=== PATIENT | female | born 1945 | race Caucasian/White ===

== ENCOUNTER → 2016-05-10 | Outpatient (CLI) | payer MEDICARE, BC ==
[~2016-05-10] MED LIST: AMLO2.5T PO; AMLO5TAB2 PO; ATOR20TA9 PO
[2016-05-10 09:38] LABS: BLOOD UREA NITROGEN 15 mg/dL (7-18)
[2016-05-10 09:42] LABS: ASPARTATE AMINO TRANSFERASE 21 U/L (15-37)
== END | disposition home or self-care (01) ==
LOC: STAR 08:08
PROVIDERS: ATTEND Surgery
DX: Z01.818 Encounter for other preprocedural examination (principal); K80.00 Calculus of gallbladder with acute cholecystitis without obstruction
CPT/HCPCS: 36415; 80053

== ENCOUNTER 2016-05-20 07:58 | Inpatient (IN) | payer MEDICARE, BC ==
[2016-05-10 10:04] VITALS: BP 164/81
[~2016-05-20] VITALS: Ht 161.3 cm; Wt 68.6 kg
[2016-05-20] MEDS ORDERED: LIDOCAINE 1%, 2ML SQ PRN (08:30)
[2016-05-20] MEDS: LACTATED RINGERS 1,000 ML IV SCH ×2 (08:55→14:56)
[2016-05-20] MEDS ORDERED: BUPIVACAINE/PF 0.5% ONE (09:04)
[2016-05-20] MEDS ORDERED: BUPIVACAINE/PF-EPI 0.25% 1:200K ONE (09:04)
[2016-05-20] MEDS ORDERED: FENTANYL PF 100 MCG/2ML ONE ×4 (10:36→12:56)
[2016-05-20] MEDS ORDERED: METOCLOPRAMIDE 5 MG/ML, 2ML ONE (10:43)
[2016-05-20] MEDS ORDERED: CEFAZOLIN 1,000 MG ONE (10:43)
[2016-05-20] MEDS ORDERED: ROCURONIUM 10 MG/ML ONE (10:43)
[2016-05-20] MEDS ORDERED: DEXAMETHASONE 4 MG/ML, 1ML ONE (10:43)
[2016-05-20] MEDS ORDERED: ONDANSETRON 2MG/ML, 2ML ONE ×2 (10:43→13:18)
[2016-05-20] MEDS ORDERED: PROPOFOL 10 MG/ML, 20ML ONE (10:43)
[2016-05-20] MEDS ORDERED: LIDOCAINE 2% 100MG/5ML SYRINGE ONE (10:43)
[2016-05-20] MEDS ORDERED: hydrALAzine 20 MG/ML, 1ML IV PRN (11:30)
[2016-05-20] MEDS ORDERED: ONDANSETRON 2MG/ML, 2ML IVPush PRN (11:30)
[2016-05-20] MEDS ORDERED: LABETALOL 5MG/ML, 20ML IV PRN (11:30)
[2016-05-20] MEDS ORDERED: PROMETHAZINE 25 MG/ML, 1ML IV PRN (11:30)
[2016-05-20] MEDS ORDERED: OXYcodone 5 MG/5 ML ORAL.SOL UDC PO PRN (11:30)
[2016-05-20] MEDS ORDERED: OXYcodone 5 MG/5 ML ORAL.SOL UDC ONE (12:56)
[2016-05-20] MEDS: FENTANYL PF 100 MCG/2ML IV PRN ×2 (12:58→13:05)
[2016-05-20] MEDS ORDERED: HYDROmorphone 2 MG/ML, 1ML ONE (13:01)
[2016-05-20] MEDS: HYDROmorphone 1 MG/ML, 1ML IV PRN ×4 (13:02→13:45)
[2016-05-20] MEDS ORDERED: PROMETHAZINE 25 MG/ML, 1ML ONE (13:29)
[2016-05-20] MEDS ORDERED: MORPHINE SULFATE 4 MG/ML, 1ML IV PRN (15:30)
[2016-05-20] MEDS: D5%-0.45NACL+KCL 20MEQ 1,000 ML IV SCH (15:38)
[2016-05-20 20:00] VITALS: BP 132/82
[2016-05-20] MEDS: ONDANSETRON 2MG/ML, 2ML IVPush PRN (20:16)
[2016-05-20] MEDS: FAMOTIDINE 20 MG/2 ML IVPush SCH (21:02)
[2016-05-20 23:59] VITALS: BP 150/86
[2016-05-21] MEDS: D5%-0.45NACL+KCL 20MEQ 1,000 ML IV SCH ×3 (00:44→22:39)
[2016-05-21 04:00] VITALS: BP 150/88
[2016-05-21] MEDS: ONDANSETRON 2MG/ML, 2ML IVPush PRN ×2 (05:49→11:58)
[2016-05-21 06:40] LABS: ASPARTATE AMINO TRANSFERASE 47 U/L (15-37); BLOOD UREA NITROGEN 12 mg/dL (7-18)
[2016-05-21] MEDS: FAMOTIDINE 20 MG/2 ML IVPush SCH ×2 (08:50→20:50)
[2016-05-21] MEDS: AMLODIPINE 2.5 MG TABLET PO SCH ×2 (08:52→09:57)
[2016-05-21] MEDS: ENOXAPARIN 30 MG/0.3 ML SQ SCH ×2 (08:52→20:53)
[2016-05-21 08:53] VITALS: BP 152/77
[2016-05-21] MEDS ORDERED: PROMETHAZINE 25 MG/ML, 1ML IM PRN (13:30)
[2016-05-21 14:57] VITALS: BP 162/90
[2016-05-21 19:18] VITALS: BP 156/93
[2016-05-22 00:36] VITALS: BP 135/81
[2016-05-22 06:23] LABS: BLOOD UREA NITROGEN 8 mg/dL (7-18)
[2016-05-22 06:26] LABS: ASPARTATE AMINO TRANSFERASE 29 U/L (15-37)
[2016-05-22 08:16] VITALS: BP 119/75
[2016-05-22] MEDS ORDERED: MORPHINE SULFATE 4 MG/ML, 1ML IV PRN (08:21)
[2016-05-22] MEDS ORDERED: OXYcodone/APAP 5/325MG TABLET PO PRN (08:30)
[2016-05-22] MEDS: ENOXAPARIN 30 MG/0.3 ML SQ SCH ×2 (09:04→19:34)
[2016-05-22] MEDS: D5%-0.45NACL+KCL 20MEQ 1,000 ML IV SCH (09:04)
[2016-05-22] MEDS: FAMOTIDINE 20 MG/2 ML IVPush SCH ×2 (09:05→23:27)
[2016-05-22] MEDS: AMLODIPINE 2.5 MG TABLET PO SCH (09:05)
[2016-05-22] MEDS: KETOROLAC 30 MG/1 ML IV SCH ×2 (09:09→16:49)
[2016-05-22 14:40] VITALS: BP 147/85
[2016-05-22 19:29] VITALS: BP 136/77
[2016-05-23] MEDS: D5%-0.45NACL+KCL 20MEQ 1,000 ML IV SCH ×2 (00:21→11:10)
[2016-05-23] MEDS: KETOROLAC 30 MG/1 ML IV SCH ×3 (01:20→17:00)
[2016-05-23 02:00] VITALS: BP 138/85
[2016-05-23 06:22] LABS: BLOOD UREA NITROGEN 11 mg/dL (7-18)
[2016-05-23 06:26] LABS: ASPARTATE AMINO TRANSFERASE 15 U/L (15-37)
[2016-05-23 07:42] VITALS: BP 146/79
[2016-05-23] MEDS: FAMOTIDINE 20 MG/2 ML IVPush SCH (09:00)
[2016-05-23] MEDS: ENOXAPARIN 30 MG/0.3 ML SQ SCH (09:20)
[2016-05-23] MEDS: AMLODIPINE 2.5 MG TABLET PO SCH (09:20)
[2016-05-23 13:20] VITALS: BP 130/83
== END 2016-05-23 18:15 | disposition home or self-care (01) | DRG 416 ==
LOC: OUT 07:58 → 4NOR 14:42 → OUT 14:49 → 4NOR 14:50
PROVIDERS: ADMIT Surgery; ATTEND Surgery
PROC: 0DQ80ZZ Repair Small Intestine, Open Approach (ICD-10-PCS; 2016-05-20)
PROC: 0FT40ZZ Resection of Gallbladder, Open Approach (ICD-10-PCS; principal; 2016-05-20 10:00)
PROC: 0FJ44ZZ Inspection of Gallbladder, Percutaneous Endoscopic Approach (ICD-10-PCS; 2016-05-20 10:00)
DX: K81.1 Chronic cholecystitis (principal); K66.0 Peritoneal adhesions (postprocedural) (postinfection); Z53.31 Laparoscopic surgical procedure converted to open procedure
CPT/HCPCS: 36415; 74000; 80053; 82247; 82248; 82962; 83690; 85025; 88304; C1729; J0690; J1100; J1170; J1650; J1885; J2270; J2405; J2550; J2704; J3010; J3490; J2765; J3480; J7120; S0028